=== PATIENT | female | born 1975 | race African-American/Black ===

== ENCOUNTER 2022-01-04 11:09 | Emergency (ER) | payer BC ==
[~2022-01-04] VITALS: Ht 175.3 cm; Wt 68.2 kg
[2022-01-04 11:24] VITALS: TEMP 98.6
[2022-01-04 12:49] LABS: MEAN CELL VOLUME 97 fl (80.0-100.0); MEAN CORPUSCULAR HGB CONC 32 g/dl (33.0-37.0); PLATELET COUNT 310 K/mm3 (130-400); RED BLOOD COUNT 3.22 M/mm3 (4.10-5.30); REDCELL DISTRIBUTION WIDTH-CV 16.8 % (11.5-14.5); RETIC # 0.12 M/mm3 (0.02-0.16); RETIC % 3.7 % (0.5-3.52)
[2022-01-04 12:51] LABS: HEMATOCRIT 31.1 % (37.0-47.0); HEMOGLOBIN 9.8 g/dl (12.5-16.0); MEAN CORPUSCULAR HEMOGLOBIN 30 pg (27-31)
[2022-01-04 13:02] LABS: ALBUMIN 3.9 gm/dL (3.5-5.0); ANION GAP 10 mmol/L (7-16); BLOOD UREA NITROGEN 26 mg/dL (7-19); CALCIUM 8.9 mg/dL (8.4-10.2); CARBON DIOXIDE 18 mmol/L (22-29); CHLORIDE 110 mmol/L (98-107); CREATININE, serum 1.64 mg/dL (0.57-1.11); GLUCOSE 97 mg/dL (70-99); PHOSPHOROUS 4.1 mg/dL (2.3-4.7); SODIUM 138 mmol/L (136-145)
[2022-01-04 13:04] LABS: EOSINOPHIL 7 % (0-4); LYMPHOCYTE 31 % (20.0-51.0); NEUTROPHILS 60 % (42.0-75.2)
[2022-01-04 13:05] LABS: OVALOCYTES 1+; PLATELET ESTIMATE NORMAL (NORMAL)
[2022-01-04 13:06] LABS: ANISOCYTOSIS 1+; MICROCYTOSIS 1+
[2022-01-04 13:10] LABS: TROPONIN-I < 0.010 ng/mL (0.00-0.033)
[2022-01-04 15:25] VITALS: BP 117/84; PULSE 73
== END 2022-01-04 15:30 | disposition home or self-care (01) ==
LOC: COL.ER 11:09
PROVIDERS: Emergency Medicine
DX: D57.40 Sickle-cell thalassemia without crisis (principal); K08.89 Other specified disorders of teeth and supporting structures; R51.9 Headache, unspecified; Z20.822 Contact with and (suspected) exposure to COVID-19; Z28.310 Unvaccinated for COVID-19
CPT/HCPCS: J2765; Q9967